=== PATIENT | male | born 1975 | race Hispanic/Latino ===

== ENCOUNTER 2023-10-14 10:57 | Outpatient (CLI) | payer BC | END 2023-10-14 10:58 | disposition home or self-care (01) | LOC: BICRAD 10:57 | PROVIDERS: ATTEND Nurse Practitioner Family | DX: M25.562 Pain in left knee (principal) ==

== ENCOUNTER 2025-06-23 08:56 | Inpatient (IN) | payer BC ==
[2025-06-23 09:38] LABS: #Basophils Less than 0.03 10x3/uL (0.0-0.2); #Eosinophils Less than 0.03 10x3/uL (0.0-0.7); #Monocytes 0.29 10x3/uL (0.11-0.59); #Neutrophils 7.46 10x3/uL (1.40-6.50); %Basophils 0.1 % (0.0-1.0); %Eosinophils 0.0 % (0.0-10.0); %Lymphocytes 6.8 % (21.0-51.0); %Monocytes 3.5 % (0.0-10.0); %Neutrophils 89.5 % (42.0-75.0); Hematocrit 42.3 % (42.0-52.0); Hemoglobin 14.4 g/dL (14.0-18.0); Mean Corpuscular Hemoglobin 28.6 pg (27.0-31.0); Mean Corpuscular Volume 83.9 fL (78.0-98.0); Platelet Count 194 10x3/uL (130-400); Red Blood Cell (RBC) Count 5.04 mill/uL (4.70-6.10); White Blood Cell (WBC) Count 8.34 10x3/uL (4.8-10.8)
[2025-06-23] MEDS ORDERED: diphenhydrAMINE 50 MG/ML VIAL ONE (09:40)
[2025-06-23] MEDS ORDERED: Metoclopramide HCl 10 MG (2 mL) VIAL ONE (09:40)
[2025-06-23 10:06] LABS: ALT (SGPT) 21 U/L (Less than 45); AST (SGOT) 20 U/L (11-34); Albumin 4.3 g/dL (3.1-4.5); Alkaline Phosphatase 71 U/L (40-110); Anion Gap 14 mmol/L (10-20); BUN (Urea Nitrogen) 15 mg/dL (8.4-25.7); Bilirubin, Total 0.7 mg/dL (0.3-1.2); Calc. Creatinine Clearance 0 mL/min (70-130); Calcium 8.9 mg/dL (7.8-10.44); Carbon Dioxide 23 mmol/L (22-29); Chloride 104 mmol/L (98-107); Globulin 3.5 g/dL (2.4-3.5); Glucose 154 mg/dL (70-105); Lipase 7 U/L (8-78); Potassium 3.6 mmol/L (3.5-5.1); Sodium 137 mmol/L (136-145)
[2025-06-23 10:36] LABS: INR-International Normal Ratio 1.1; PTT 30.5 sec (22.9-36.1); Prothrombin Time 14.0 sec (12.0-14.7)
[2025-06-23 10:41] LABS: Troponin I Less than 0.010 ng/mL (< 0.028)
[2025-06-23] MEDS ORDERED: Iopamidol-370 76% 500 ML MDV (1 ML CHARGE) ONE (10:51)
[2025-06-23] MEDS: Ondansetron PF 4 MG/2 ML Vial IVP SCH (14:31)
[2025-06-23] MEDS: levETIRAcetam 500 MG (5 mL) VIAL SLOW IVP SCH (14:31)
[2025-06-23] MEDS: Pantoprazole 40 MG VIAL IVP SCH (14:32)
[2025-06-23 14:38] VITALS: BMI 33.3
[2025-06-23] MEDS ORDERED: Dextrose 50% Abboject 50 ML SYRINGE SLOW IVP PRN (14:49)
[2025-06-23] MEDS ORDERED: Glucagon 1 MG/ML KIT IM PRN (14:49)
[2025-06-23] MEDS: hydrALAZINE 20 MG/ML VIAL SLOW IVP PRN (16:18)
[2025-06-23] MEDS: niCARdipine 25 MG in Sodium Chloride 0.9% 250 ML 250 ML IVPB SCH (17:44)
[2025-06-23] MEDS: Acetaminophen 500 MG TAB PO PRN (17:44)
[2025-06-23 23:01] LABS: Cocaine Metabolite Screen Negative (Negative); THC/Cannabinoid Screen Negative (Negative); Tricyclic Screen Negative (Negative)
[2025-06-24 03:41] LABS: #Basophils Less than 0.03 10x3/uL (0.0-0.2); #Eosinophils Less than 0.03 10x3/uL (0.0-0.7); #Monocytes 0.32 10x3/uL (0.11-0.59); #Neutrophils 12.59 10x3/uL (1.40-6.50); %Basophils 0.0 % (0.0-1.0); %Eosinophils 0.0 % (0.0-10.0); %Lymphocytes 4.7 % (21.0-51.0); %Monocytes 2.3 % (0.0-10.0); %Neutrophils 92.5 % (42.0-75.0); Hematocrit 41.0 % (42.0-52.0); Hemoglobin 13.8 g/dL (14.0-18.0); Mean Corpuscular Hemoglobin 28.6 pg (27.0-31.0); Mean Corpuscular Volume 84.9 fL (78.0-98.0); Platelet Count 183 10x3/uL (130-400); Red Blood Cell (RBC) Count 4.83 mill/uL (4.70-6.10); White Blood Cell (WBC) Count 13.62 10x3/uL (4.8-10.8)
[2025-06-24 04:12] LABS: Anion Gap 12 mmol/L (10-20); BUN (Urea Nitrogen) 20 mg/dL (8.4-25.7); Calc. Creatinine Clearance 179 mL/min (70-130); Calcium 8.3 mg/dL (7.8-10.44); Carbon Dioxide 22 mmol/L (22-29); Cardiac Risk 2.7 (Less than 4.5); Chloride 106 mmol/L (98-107); Cholesterol 163 mg/dl (< 200 Desired); Glucose 172 mg/dL (70-105); HDL Cholesterol 60 mg/dL (>60 Neg Risk); LDL Cholesterol, Calculated 89 mg/dL; Potassium 3.6 mmol/L (3.5-5.1); Sodium 136 mmol/L (136-145); Triglycerides 69 mg/dL (Less than 150)
[2025-06-24] MEDS ORDERED: Heparin 10,000 UNITS/ 10 ML VIAL ONE ×4 (08:34→09:15)
[2025-06-24] MEDS ORDERED: Lidocaine 1% (PF) 30 ML VIAL ONE (08:38)
[2025-06-24 08:53] VITALS: BMI 33.5
[2025-06-24] MEDS ORDERED: Iopamidol 370 76% 100 ML VIAL ONE (11:17)
[2025-06-24] MEDS: Ondansetron PF 4 MG/2 ML Vial IVP SCH (18:28)
[2025-06-24] MEDS: Pantoprazole 40 MG DR.TAB PO SCH (20:15)
[2025-06-25 03:28] LABS: #Basophils Less than 0.03 10x3/uL (0.0-0.2); #Eosinophils Less than 0.03 10x3/uL (0.0-0.7); #Monocytes 0.46 10x3/uL (0.11-0.59); #Neutrophils 7.25 10x3/uL (1.40-6.50); %Basophils 0.2 % (0.0-1.0); %Eosinophils 0.1 % (0.0-10.0); %Lymphocytes 16.0 % (21.0-51.0); %Monocytes 5.0 % (0.0-10.0); %Neutrophils 78.3 % (42.0-75.0); Hematocrit 39.6 % (42.0-52.0); Hemoglobin 13.2 g/dL (14.0-18.0); Mean Corpuscular Hemoglobin 28.9 pg (27.0-31.0); Mean Corpuscular Volume 86.7 fL (78.0-98.0); Platelet Count 167 10x3/uL (130-400); Red Blood Cell (RBC) Count 4.57 mill/uL (4.70-6.10); White Blood Cell (WBC) Count 9.26 10x3/uL (4.8-10.8)
[2025-06-25 03:43] LABS: Anion Gap 11 mmol/L (10-20); BUN (Urea Nitrogen) 17 mg/dL (8.4-25.7); Calc. Creatinine Clearance 188 mL/min (70-130); Calcium 7.8 mg/dL (7.8-10.44); Carbon Dioxide 25 mmol/L (22-29); Chloride 106 mmol/L (98-107); Glucose 135 mg/dL (70-105); Potassium 3.4 mmol/L (3.5-5.1); Sodium 139 mmol/L (136-145)
[2025-06-25] MEDS ORDERED: Ondansetron PF 4 MG/2 ML Vial IVP PRN (11:08)
[2025-06-25 13:34] VITALS: BP 126/76
[2025-06-25] MEDS: metFORMIN 500 MG TAB PO SCH (17:36)
[2025-06-26 03:50] LABS: #Basophils Less than 0.03 10x3/uL (0.0-0.2); #Eosinophils 0.04 10x3/uL (0.0-0.7); #Monocytes 0.50 10x3/uL (0.11-0.59); #Neutrophils 5.41 10x3/uL (1.40-6.50); %Basophils 0.3 % (0.0-1.0); %Eosinophils 0.6 % (0.0-10.0); %Lymphocytes 16.3 % (21.0-51.0); %Monocytes 7.0 % (0.0-10.0); %Neutrophils 75.5 % (42.0-75.0); Hematocrit 42.4 % (42.0-52.0); Hemoglobin 14.1 g/dL (14.0-18.0); Mean Corpuscular Hemoglobin 28.5 pg (27.0-31.0); Mean Corpuscular Volume 85.7 fL (78.0-98.0); Platelet Count 173 10x3/uL (130-400); Red Blood Cell (RBC) Count 4.95 mill/uL (4.70-6.10); White Blood Cell (WBC) Count 7.16 10x3/uL (4.8-10.8)
[2025-06-26 04:13] LABS: Anion Gap 12 mmol/L (10-20); BUN (Urea Nitrogen) 13 mg/dL (8.4-25.7); Calc. Creatinine Clearance 199 mL/min (70-130); Calcium 8.3 mg/dL (7.8-10.44); Carbon Dioxide 22 mmol/L (22-29); Chloride 105 mmol/L (98-107); Glucose 125 mg/dL (70-105); Potassium 3.7 mmol/L (3.5-5.1); Sodium 135 mmol/L (136-145)
[2025-06-26 12:10] VITALS: TEMP 97.9
== END 2025-06-26 10:09 | disposition home or self-care (01) | DRG 66 ==
LOC: ERS 08:56 → CCU 13:25
PROVIDERS: ADMIT Hospitalist; ATTEND Internal Medicine
PROC: B3151ZZ Fluoroscopy of Bilateral Common Carotid Arteries using Low Osmolar Contrast (ICD-10-PCS; principal; 2025-06-24)
PROC: B3181ZZ Fluoroscopy of Bilateral Internal Carotid Arteries using Low Osmolar Contrast (ICD-10-PCS; 2025-06-24)
PROC: B31F1ZZ Fluoroscopy of Left Vertebral Artery using Low Osmolar Contrast (ICD-10-PCS; 2025-06-24)
DX: I60.9 Nontraumatic subarachnoid hemorrhage, unspecified (principal); I16.0 Hypertensive urgency; R29.700 NIHSS score 0
CPT/HCPCS: 36215; 36223; 36224; 36226; 36415; 36416; 70450; 70496; 70498; 80048; 80053; 80061; 80306; 80307; 83036; 83690; 84443; 84484; 85025; 85610; 85730; 93005; 96374; 96375; C1769; C1894; J0360; J1200; J1644; J1953; J2405; J2470; J2765; J2919; J7030; J7050; Q9967

== ENCOUNTER 2025-07-08 12:36 | Outpatient (CLI) | payer BC ==
[~2025-07-08 12:36] MED LIST: Iopamidol-370 76% 500 ML MDV (1 ML CHARGE) ONE
== END 2025-07-08 12:37 | disposition home or self-care (01) ==
LOC: CT 12:36
PROVIDERS: ATTEND Physician Assistant
DX: I60.9 Nontraumatic subarachnoid hemorrhage, unspecified (principal)
CPT/HCPCS: 70496; Q9967